=== PATIENT | female | born 1930 | race Caucasian/White ===

== ENCOUNTER 2016-08-19 10:02 | Emergency (ER) | payer OTHER, MEDICAID ==
[~2016-08-19] VITALS: Ht 160 cm; Wt 63.5 kg
[2016-08-19 13:40] LABS: microscopic required? NO
[2016-08-19 13:51] LABS: BASOPHIL % 0.5 % (0-2); PLATELET COUNT 221 x10^3mcL (130-400)
[2016-08-19 13:53] LABS: RED CELL DISTRIBUTION WIDTH 15.2 % (11.5-14.5); UA SPECIFIC GRAVITY 1.025 (1.005-1.035); urine erythrocyte NEGATIVE (NEGATIVE)
[2016-08-19 13:56] LABS: CALCIUM 8.3 mg/dL (8.5-10.1); CARBON DIOXIDE 26.4 mmol/L (21-32); CHLORIDE SERUM 111 mmol/L (98-107); CREATININE SERUM 0.5 mg/dL (0.6-1.0); GLUCOSE SERUM 106 mg/dL (74-106); POTASSIUM SERUM 3.6 mmol/L (3.5-5.1); SODIUM SERUM 147 mmol/L (136-145)
[2016-08-19 14:08] LABS: ALKALINE PHOSPHATASE 88 U/L (46-116); ALT/SGPT 18 U/L (14-59); AMYLASE 50 U/L (25-115); AST/SGOT 19 U/L (15-37); BILIRUBIN TOTAL 0.45 mg/dL (0.20-1.00); HDL CHOLESTEROL 44 mg/dL (40-60); LIPASE 57 IU/L (73-393); T4(THYROXINE) 8.1 ug/dL (4.7-13.3); TOTAL PROTEIN, SERUM 6.5 g/dL (6.4-8.2)
[2016-08-19 14:25] LABS: CHOLESTEROL 131 mg/dL (<200)
[2016-08-19 14:50] LABS: AMPHETAMINE QUAL UR NONE DETECTED (NEG <=1000)
[2016-08-19 15:30] VITALS: BP 137/70
== END 2016-08-19 15:30 | disposition home or self-care (01) ==
LOC: ED 10:02
PROVIDERS: Emergency Medicine
DX: E86.0 Dehydration (principal); E46 Unspecified protein-calorie malnutrition; I44.7 Left bundle-branch block, unspecified; E11.9 Type 2 diabetes mellitus without complications; I10 Essential (primary) hypertension; E78.00 Pure hypercholesterolemia, unspecified
CPT/HCPCS: 80307; 83880; J1630; J2060; J7030; Q0092